=== PATIENT | female | born 1930 | race Caucasian/White ===

== ENCOUNTER 2019-08-25 04:51 | Emergency (ER) | payer MEDICARE ==
[~2019-08-25] VITALS: Ht 152.4 cm; Wt 97.9 kg
--- NOTE | 2019-08-25 05:00 | PHYS DOC ---
Past History Past Medical History: Cancer (Pancreatic), Hypertension (THEODORE MAYORGA DO) Past Surgical History: Cancer Surgery, Knee Replacement (THEODORE MAYORGA DO) Smoking: Non-smoker Alcohol Use: None Drug Use: None (THEODORE MAYORGA DO) Adult General Chief Complaint Chief Complaint: fall [facility] HPI Patient is a 88-year-old female who is brought to the ER by EMS secondary to a fall this morning while going to the bathroom. Patient states that she was walking out of the bathroom when she caught her right foot and tr ipped and fell on her left shoulder. She denies of left shoulder pain, right hip pain, right foot pain. Did not strike her head. She denies pain elsewhere. No chest pain or shortness of breath. She was on the ground for approximately 45 minutes before her found her and called the ambulance. She has a history of falling and lift assist. (ÁNGEL LAKE DO) Review of Systems Review of Systems All other ROS is negative unless otherwise stated in HPI (ÁNGEL LAKE DO) Physical Exam Physical Exam See above Constitutional: Well developed, well nourished, no acute distress, non-toxic appearance. [] HENT: Normocephalic, atraumatic, bilateral external ears normal, oropharynx moist, no oral exudates, nose normal. [] Eyes: PERRLA, EOMI, conjunctiva normal, no discharge. [] Neck: Normal range of motion, no tenderness, supple, no stridor. [] Cardiovascular:Heart rate regular rhythm, no murmur [] Lungs & Thorax: Bilateral breath sounds clear to auscultation [] Abdomen: Bowel sounds normal, soft, no tenderness, no masses, no pulsatile masses. [] Skin: Warm, dry, no erythema, no rash. [] Back: No tenderness, no CVA tenderness. [] Extremities: Tenderness to palpation of the left shoulder, right hip, right foot without deformity noted, no cyanosis, no clubbing, ROM intact, no edema. [] Neurologic: Alert and oriented X 3, normal motor function, normal sensory function, no focal deficits noted. [] Psychologic: Affect normal, judgement normal, mood normal. [] (ÁNGEL LAKE DO) Physical Exam Constitutional: Well developed, well nourished, no acute distress, non-toxic appearance HENT: Normocephalic, atraumatic, oropharynx moist Eyes: PERRL, EOMI, conjunctiva normal, no discharge Neck: Normal range of motion, no tenderness, supple Abdomen: Soft; pelvis stable and nontender Skin: Warm, dry, no erythema, no rash Extremities: No tenderness, ROM intact, no edema Neurologic: Alert and oriented X 3, normal motor function, normal sensory function, no focal deficits noted Psychologic: Affect normal, judgment normal (THEODORE MAYORGA DO) EKG EKG [] (ÁNGEL LAKE DO) Radiology/Procedures Radiology/Procedures [] (ÁNGEL LAKE DO) Radiology/Procedures PROCEDURE: SHOULDER 2+V LEFT SHOULDER 2+V LEFT History: Fall. Pain. Technique: 3 views left shoulder. Comparison: CT cervical spine April 26, 2019 Findings: Left shoulder arthroplasty. Normal alignment. No fracture. Widening of the left acromioclavicular joint, unchanged compared to prior. Impression: 1. No acute osseous abnormality. 2. Left shoulder arthroplasty. Electronically signed by: Hunter Gorman DO (08/25/2019 5:41 AM) [id number] PROCEDURE: HIP RIGHT 2 VIEW HIP RIGHT 2 VIEW History: Fall. Pain. Technique: 2 views right hip. Comparison: April 26, 2019 Findings: Right total hip arthroplasty. Greater trochanter well-corticated fragment, unchanged. Normal alignment. No fracture. Impression: 1. No acute osseous abnormality. 2. Right total hip arthroplasty. Electronically signed by: Hunter Gorman DO (08/25/2019 5:37 AM) [id number] PROCEDURE: FOOT RIGHT 3V FOOT RIGHT 3V History: Fall. Pain. Technique: 3 views right foot. Comparison: None. Findings: Normal alignment. No fracture. Soft tissues unremarkable. Impression: 1. No acute osseous abnormality. Electronically signed by: Hunter Gorman DO (08/25/2019 5:39 AM) [id number] (THEODORE MAYORGA DO) Course & Med Decision Making Course & Med Decision Making Pertinent Labs and Imaging studies reviewed. (See chart for details) 0600: Transition care to Dr. Mayorga. UA pending. Radiology studies negative. (ÁNGEL LAKE DO) Course & Med Decision Making Sign out received from Dr. Lake for elderly patient with history of mechanical trip and fall. Patient also reports increased urinary frequency. XRs reviewed without signs of acute fracture/dislocation. UA pending at time of sign out. UA with signs of infection. Empiric antibiotics initiated. Pyridium given for symptoms. Patient asked if she would be safe at home or if she felt she needed to be treated in hospital. Patient reports she will be fine at home. Patient stable for discharge with outpatient follow-up with PCP. Discussed findings and plan with patient, who acknowledges understanding and agreement. (THEODORE MAYORGA DO) Dragon Disclaimer Dragon Disclaimer This electronic medical record was generated, in whole or in part, using a voice recognition dictation system. (ÁNGEL LAKE DO) Departure Departure: Impression: Primary Impression: Accident due to mechanical fall without injury Additional Impressions: Left shoulder pain Right foot pain Urinary tract infection Disposition: HOME, SELF-CARE Condition: STABLE Patient Instructions: Fall Prevention and Home Safety, Dhey-gg-[id number], Foot Contusion, [id number], Shoulder Pain, [id number], Urinary Tract Infection, [id number] Scripts Cephalexin (KEFLEX) 500 Mg Capsule 1 CAP PO TID for UTI for 7 Days, #21 CAP 0 Refills Prov: THEODORE MAYORGA DO 08/25/19 Phenazopyridine Hcl (PYRIDIUM) 200 Mg Tablet 1 TAB PO TID for urinary discomfort for 2 Days, #6 TAB 0 Refills Prov: THEODORE MAYORGA DO 08/25/19 Problem Qualifiers Primary Impression: Accident due to mechanical fall without injury Encounter type: initial encounter Qualified Codes: W19.XXXA - Unspecified fall, initial encounter Additional Impressions: Left shoulder pain Chronicity: acute Qualified Codes: M25.512 - Pain in left shoulder Urinary tract infection Urinary tract infection type: acute cystitis Hematuria presence: without hematuria Qualified Codes: N30.00 - Acute cystitis without hematuria ÁNGEL LAKE DO Aug 25, 2019 05:00 THEODORE MAYORGA DO Aug 25, 2019 06:39
--- NOTE | 2019-08-25 05:40 | RAD ---
HIP RIGHT 2 VIEW History: Fall. Pain. Technique: 2 views right hip. Comparison: April 26, 2019 Findings: Right total hip arthroplasty. Greater trochanter well-corticated fragment, unchanged. Normal alignment. No fracture. Impression: 1. No acute osseous abnormality. 2. Right total hip arthroplasty. Electronically signed by: Hunter Gorman DO (08/25/2019 5:37 AM) [id number]
--- NOTE | 2019-08-25 05:41 | RAD ---
FOOT RIGHT 3V History: Fall. Pain. Technique: 3 views right foot. Comparison: None. Findings: Normal alignment. No fracture. Soft tissues unremarkable. Impression: 1. No acute osseous abnormality. Electronically signed by: Hunter Gorman DO (08/25/2019 5:39 AM) [id number]
--- NOTE | 2019-08-25 05:44 | RAD ---
SHOULDER 2+V LEFT History: Fall. Pain. Technique: 3 views left shoulder. Comparison: CT cervical spine April 26, 2019 Findings: Left shoulder arthroplasty. Normal alignment. No fracture. Widening of the left acromioclavicular joint, unchanged compared to prior. Impression: 1. No acute osseous abnormality. 2. Left shoulder arthroplasty. Electronically signed by: Hunter Gorman DO (08/25/2019 5:41 AM) [id number]
[2019-08-25 06:17] LABS: BACTERIA,URINE FEW /HPF (0-FEW); BILIRUBIN,URINE NEG (NEG); CLARITY,URINE HAZY; COLOR,URINE STRAW; GLUCOSE,URINE NEG (NEG); NITRITE,URINE NEG (NEG); SQUAMOUS EPITHELIAL CELL,UR MOD /LPF; UROBILINOGEN,URINE 0.2 mg/dL (0.2 mg/dL)
[2019-08-25 06:28] VITALS: BP 181/84
[2019-08-25] MEDS ORDERED: CEPH-264 PO (06:39)
[2019-08-25] MEDS ORDERED: PHEN-318 PO (06:39)
[2019-08-25] MEDS ORDERED: PHENAZOPYRIDINE 200 MG TABLET. PO ONE (06:45)
[2019-08-25] MEDS ORDERED: CEPHALEXIN 250 MG CAPSULE PO ONE (06:45)
== END 2019-08-25 06:45 | disposition home or self-care (01) ==
LOC: ER 04:51
DX: M25.512 Pain in left shoulder (principal); M25.551 Pain in right hip; M79.671 Pain in right foot; G89.11 Acute pain due to trauma; N30.00 Acute cystitis without hematuria; I10 Essential (primary) hypertension; W01.0XXA Fall on same level from slipping, tripping and stumbling without subsequent striking against object, initial encounter; Y93.01 Activity, walking, marching and hiking; Y92.091 Bathroom in other non-institutional residence as the place of occurrence of the external cause; Y99.8 Other external cause status
CPT/HCPCS: 73030; 73502; 73630; 81001; 87086; 99284